=== PATIENT | female | born 1950 | race Caucasian/White ===

== ENCOUNTER → 2016-07-13 | Day surgery (SDC) | payer BC ==
[2016-06-29 07:51] VITALS: BMI 28.0
[~2016-07-13] VITALS: Ht 160 cm; Wt 72.7 kg
[~2016-07-13] MED LIST: ATOR10TA88 PO; CALCTAB5 PO; LEVO50TA6 PO; LIDOCAINE HCL 2% 2 ML VIAL (20MG/ML) ONE; MULT-506 PO; PROPOFOL IV EMULSION 10 MG/ML 20 ML VIAL IV ONE; RED RICE YEAST PO; SODIUM CHLORIDE 0.9% 500ML 500 ML IV ONE
[2016-07-13 09:21] VITALS: Ht 160 cm; Wt 72.7 kg
--- NOTE | 2016-07-13 10:28 | Endo History and Physical ---
History & Physical Date of Service: Jul 13, 2016. Chief Complaint: ROUTINE SCREENING Referring Physician: DR. MAURER History of Present Illness 65 yo CF who presents for screening colonoscopy. Past Surgical History Hx Cardiac Surgery: No Hx Internal Defibrillator: No Hx Pacemaker: No Hx Abdominal Surgery: Yes (TUBAL LIGATION) Hx of Implantable Prosthesis: No Hx Post-Op Nausea and Vomiting: No Hx Cancer Surgery: No Hx Thoracic Surgery: No Hx Orthopedic: No Hx Urinary Tract Surgery: No Family History None Social History Smoking Status: Never Smoker Hx Substance Use: No Hx Alcohol Use: No Allergies Coded Allergies: NO KNOWN DRUG ALLERGIES (Verified Allergy, Unknown, ., 06/29/16) Current Medications Reported Home Medications Medications Dose Route/Sig Max Daily Dose Days Date Category [Red Rice Yeast] 2 Cap PO EVERY OTHER DAY 07/13/16 Reported Multivitamin (Multivitamins) Tab 1 Tab PO QAM 06/29/16 Reported Caltrate 600 (Calcium Carbonate) 1,500 Mg Tab 1 Tab PO QAM 06/29/16 Reported Lipitor (Atorvastatin Calcium) 10 Mg Tab 10 Mg PO QPM 06/29/16 Reported Levothyroxine Sodium 50 Mcg Tab 1 Tab PO QAM 90 06/29/16 Reported Vital Signs Weight (Kilograms): 72.73 Height (Feet): 5 Height (Inches): 3 Date Time Temp Pulse Resp B/P Pulse Ox O2 Delivery O2 Flow Rate FiO2 07/13/16 09:37 36.2 62 20 150/87 99 Room Air Physical Exam General Appearance: WD/WN, no apparent distress Respiratory/Chest: Auscultation: breath sounds normal Cardiovascular: Heart Auscultation: RRR Abdomen: Bowel Sounds: normal Inspection & Palpation: soft, non-distended, no tenderness, guarding & rebound Assessment and Plan Assessment: 65 yo CF who presents for screening colonoscopy. Plan: Proceed with colonoscopy.
--- NOTE | 2016-07-13 10:56 | Discharge Instructions ---
Endoscopy Patient Instructions Date / Procedure(s) Performed Jul 13, 2016. Allergy Information Coded Allergies: NO KNOWN DRUG ALLERGIES (Verified Allergy, Unknown, ., 06/29/16) Discharge Date / Findings Jul 13, 2016. Colon polyp Diverticulosis Internal hemorrhoids Medication Instructions OK to resume all medications today Reported Home Medications Medications Dose Route/Sig Max Daily Dose Days Date Category [Red Rice Yeast] 2 Cap PO EVERY OTHER DAY 07/13/16 Reported Multivitamin (Multivitamins) Tab 1 Tab PO QAM 06/29/16 Reported Caltrate 600 (Calcium Carbonate) 1,500 Mg Tab 1 Tab PO QAM 06/29/16 Reported Lipitor (Atorvastatin Calcium) 10 Mg Tab 10 Mg PO QPM 06/29/16 Reported Levothyroxine Sodium 50 Mcg Tab 1 Tab PO QAM 90 06/29/16 Reported Provider Instructions Activity Restrictions - No exercising or heavy lifting for 24 hours. - Do not drink alcohol the day of the procedure. - Do not drive a car or operate machinery until the day after the procedure. - Do not make any important decisions or sign important papers in 24 hours after the procedure. Following Day: - Return to full activity which may include returning to work/school. Diet Start your diet with liquids and light foods (jello, soup, juice, toast). Then eat your usual diet if not nauseated. Treatment For Common After Affects For mild abdominal pain, bloating, or excessive gas: - Rest - Eat lightly - Lie on right side Follow-Up Information Follow-up with DR. MAURER as scheduled Anesthesia Information What You Should Know You have had a procedure that required some medicine to reduce anxiety and discomfort. This treatment is called moderate sedation. After receiving the treatment, you may be sleepy, but you will be able to breathe on your own. The effects of the treatment may last for several hours. Follow these instructions along with Activity/Diet recommendations noted above: * Do NOT do anything where dizziness or clumsiness would be dangerous. * Rest quietly at home today, then you can be up and about tomorrow. * Have a responsible person stay with you the rest of today. * You may have had an I.V. today. If so, you may take the dressing off later today. Recommendations Call your doctor if: * Trouble breathing * Continuous vomiting for more than 24 hours * Temperature above 101 degrees * Severe abdominal pain or bloating * Pain not relieved by pain medicine ordered * There is increased drainage or redness from any incision * A large amount of rectal bleeding greater than 2-3 tablespoons. (If you had a polyp/s removed or have hemorrhoids, a small amount of blood - from the rectum is to be expected.) * You have any unanswered questions or concerns. IN THE EVENT OF A SERIOUS EMERGENCY, GO TO THE NEAREST EMERGENCY ROOM Your discharge instructions were prepared by provider Esau Crum. Patient Instructions Signature Page Carol Kennedy Patient (or Guardian) Signature/Date: I have read and understand the instructions given to me by my caregivers. Caregiver/RN/Doctor Signature/Date: The above-named patient and/or guardian has received patient instructions on this date. + Original Patient Signature Page (only) stays with chart. Please make copy for patient.
--- NOTE | 2016-07-13 11:00 | GI REPORT ---
Procedure Date: 07/13/2016 10:24 AM Procedure: Colonoscopy Indications: Abdominal pain in the left lower quadrant Medicines: Monitored Anesthesia Care Complications: No immediate complications. Estimated Blood Loss: Estimated blood loss: none. Procedure: Pre-Anesthesia Assessment: - Prior to the procedure, a History and Physical was performed, and patient medications and allergies were reviewed. The patient's tolerance of previous anesthesia was also reviewed. The risks and benefits of the procedure and the sedation options and risks were discussed with the patient. All questions were answered, and informed consent was obtained. Prior Anticoagulants: The patient has taken no previous anticoagulant or antiplatelet agents. ASA Grade Assessment: II - A patient with mild systemic disease. After reviewing the risks and benefits, the patient was deemed in satisfactory condition to undergo the procedure. After I obtained informed consent, the scope was passed under direct vision. Throughout the procedure, the patient's blood pressure, pulse, and oxygen saturations were monitored continuously. The scope was introduced through the anus and advanced to the terminal ileum. The colonoscopy was performed without difficulty. The patient tolerated the procedure well. The quality of the bowel preparation was good. The terminal ileum, ileocecal valve, appendiceal orifice, and rectum were photographed. Findings: A 8 mm polyp was found in the sigmoid colon. The polyp was sessile. The polyp was removed with a cold snare. Resection and retrieval were complete. To prevent bleeding after the polypectomy, one hemostatic clip was successfully placed. There was no bleeding at the end of the procedure. Multiple small-mouthed diverticula were found in the sigmoid colon. Non-bleeding internal hemorrhoids were found during retroflexion. The hemorrhoids were small. Impression: - One 8 mm polyp in the sigmoid colon, removed with a cold snare. Resected and retrieved. Clip was placed. - Diverticulosis in the sigmoid colon. - Non-bleeding internal hemorrhoids. Recommendation: - Resume previous diet. - Continue present medications. - Repeat colonoscopy for surveillance based on pathology results. - Return to primary care physician as previously scheduled. Esau Crum DO 07/13/2016 11:00:31 AM This report has been signed electronically. Note Initiated On: 07/13/2016 10:24 AM I attest to the content of the Intraoperative Record and orders documented therein, exceptions below
[2016-07-13 11:25] VITALS: BP 144/70; PULSE 60; O2SAT 99
--- NOTE | 2016-07-13 12:25 | Anesthesiology Progress Note ---
Anesthesia Post Op Note Date & Time Jul 13, 2016 at 12:25 Vital Signs Pain Intensity: 0 Vital Signs Past 12 Hours Date Time Temp Pulse Resp B/P Pulse Ox O2 Delivery O2 Flow Rate FiO2 07/13/16 11:25 60 18 144/70 99 Room Air 07/13/16 11:10 64 18 118/73 99 Room Air 07/13/16 10:55 68 18 116/65 100 Room Air 07/13/16 09:37 36.2 62 20 150/87 99 Room Air Notes Mental Status: alert / awake / arousable, participated in evaluation Pt Amnestic to Procedure: Yes Nausea / Vomiting: adequately controlled Pain: adequately controlled Airway Patency, RR, SpO2: stable & adequate BP & HR: stable & adequate Hydration State: stable & adequate Anesthetic Complications: no major complications apparent
== END | disposition home or self-care (01) ==
LOC: C.GI 09:08
PROVIDERS: ATTEND Internal Medicine
DX: Z12.11 Encounter for screening for malignant neoplasm of colon (principal); D12.5 Benign neoplasm of sigmoid colon; R10.32 Left lower quadrant pain; K57.30 Diverticulosis of large intestine without perforation or abscess without bleeding; K64.8 Other hemorrhoids

== ENCOUNTER → 2016-12-04 | Outpatient (CLI) | payer BC ==
[~2016-12-04] MED LIST changes: -LIDOCAINE HCL 2% 2 ML VIAL (20MG/ML) ONE; -PROPOFOL IV EMULSION 10 MG/ML 20 ML VIAL IV ONE; -SODIUM CHLORIDE 0.9% 500ML 500 ML IV ONE
[2016-12-04 15:24] LABS: CHOLESTEROL/HDL RATIO 3.3; THYROID STIMULATING HORMONE 2.31 uIu/ml (0.300-4.500)
== END | disposition home or self-care (01) ==
LOC: C.LABMFLN 07:27
PROVIDERS: ATTEND Family Medicine
DX: E78.00 Pure hypercholesterolemia, unspecified (principal); E03.9 Hypothyroidism, unspecified; R73.01 Impaired fasting glucose; G60.9 Hereditary and idiopathic neuropathy, unspecified; M85.80 Other specified disorders of bone density and structure, unspecified site

== ENCOUNTER → 2017-01-28 | Outpatient (CLI) | payer BC ==
--- NOTE | 2017-01-28 15:45 | MAMMOGRAPHY REPORT ---
BILATERAL DIGITAL SCREENING MAMMOGRAM WITH CAD: 01/28/2017 CLINICAL HISTORY: Routine screening. Patient has no complaints. TECHNIQUE: Bilateral CC and MLO views were obtained. Current study was also evaluated with a Compute r Aided Detection (CAD) system. COMPARISON: Comparison is made to exam dated: 01/25/2016 mammogram - [facility]. BREAST COMPOSITION: There are scattered areas of fibroglandular density in both breasts. FINDINGS: The parenchymal pattern is unchanged. No developing mass, architectural distortion or clus ter of suspicious microcalcifications is seen in either breast. IMPRESSION: ACR BI-RADS CATEGORY 2: BENIGN There is no mammographic evidence of malignancy. A 1 year screening mammogram is recommended. The pa tient will receive written notification of the results. Approximately 10% of breast cancers are not detected with mammography. A negative mammographic report should not delay biopsy if a clinically suggestive mass is present. Dorina Horner M.D. ay/:01/28/2017 14:53:16 Industrial Maintenance Repairer: Payal Borges RT(R)(Dave)(SOPHY), [facility] letter sent: Normal 1/2 BI-RADS Code: ACR BI-RADS Category 2: Benign
== END | disposition home or self-care (01) ==
LOC: C.MAMM 14:14
PROVIDERS: ATTEND Family Medicine
DX: Z12.31 Encounter for screening mammogram for malignant neoplasm of breast (principal); M85.88 Other specified disorders of bone density and structure, other site; M85.851 Other specified disorders of bone density and structure, right thigh; M85.852 Other specified disorders of bone density and structure, left thigh

== ENCOUNTER → 2017-12-03 | Outpatient (CLI) | payer BC ==
[~2017-12-03] MED LIST changes: +ATOR10TA82 PO; -ATOR10TA88 PO
== END | disposition home or self-care (01) ==
LOC: C.LABMFLN 07:31
PROVIDERS: ATTEND Family Medicine
DX: E78.00 Pure hypercholesterolemia, unspecified (principal); E03.9 Hypothyroidism, unspecified; M85.80 Other specified disorders of bone density and structure, unspecified site